=== PATIENT | female | born 1975 | race Asian ===

== ENCOUNTER 2019-02-27 13:45 | Emergency (ER) | payer OTHER ==
[~2019-02-27] VITALS: Ht 160 cm; Wt 55.8 kg
[2019-02-27 14:55] VITALS: BP 135/82
[2019-02-27 15:22] LABS: URINE BILIRUBIN NEGATIVE (Negative); URINE BLOOD NEGATIVE (Negative); URINE CLARITY CLEAR; URINE COLOR YELLOW; URINE GLUCOSE-RANDOM* NEGATIVE (Negative); URINE KETONES NEGATIVE (Negative); URINE LEUKOCYTES-REFLEX NEGATIVE (Negative); URINE NITRITE-REFLEX NEGATIVE (Negative); URINE PROTEIN (DIPSTICK) NEGATIVE (Negative); URINE UROBILINOGEN 0.2 E.U./dl (0.2-1.0)
[2019-02-27] MEDS ORDERED: FLAGYL500 M1 PO (15:28)
[2019-02-27] MEDS ORDERED: LIDOCAINE 2%2 %/5 GM TOP (15:29)
== END 2019-02-27 15:37 | disposition home or self-care (01) ==
LOC: ER 13:45
PROVIDERS: Nurse Practitioner Family
DX: N76.0 Acute vaginitis (principal)